=== PATIENT | female | born 1940 | race Two or more races ===

== ENCOUNTER 2018-07-20 11:21 | Outpatient (CLI) | payer OTHER | END 2018-07-20 11:25 | disposition home or self-care (01) | LOC: RAD 11:21 | DX: J11.89 Influenza due to unidentified influenza virus with other manifestations (principal) ==

== ENCOUNTER 2021-01-15 08:10 | Outpatient (CLI) | payer OTHER | END 2021-01-15 08:15 | disposition home or self-care (01) | LOC: RX STUDY 08:10 | PROVIDERS: ATTEND Otolaryngology Plastic Surgery within the Head & Neck | DX: R13.19 Other dysphagia (principal) ==

== ENCOUNTER 2021-02-07 09:00 | Outpatient (CLI) | payer OTHER | END 2021-02-07 09:15 | disposition home or self-care (01) | LOC: PPH VACUNA 09:00 | PROVIDERS: ATTEND Emergency Medicine Pediatric Emergency Medicine | DX: Z23 Encounter for immunization (principal) ==